=== PATIENT | female | born 1985 | race Caucasian/White ===

== ENCOUNTER 2025-01-12 00:50 | Emergency (ER) | payer OTHER ==
[~2025-01-12] VITALS: Ht 165.1 cm; Wt 56.0 kg
[~2025-01-12 00:50] MED LIST: ABIL5 PO; CYAN-35 MT; DIVA-73 PO; PANT40TA51 MT
[2025-01-12 00:52] VITALS: TEMP 98.6; O2SAT 99
[2025-01-12] MEDS: ACETAMINOPHEN 325MG TABLET PO ONE (01:52)
[2025-01-12] MEDS ORDERED: IBUP-1455 MT (01:54)
[2025-01-12] MEDS: IBUPROFEN 600MG TABLET PO ONE (02:08)
[2025-01-12 02:45] VITALS: BP 126/86; PULSE 100; RESP 13; O2SAT 100
== END 2025-01-12 02:47 | disposition home or self-care (01) ==
LOC: ER 01:28
DX: S00.83XA Contusion of other part of head, initial encounter (principal); F20.9 Schizophrenia, unspecified; H53.2 Diplopia; M47.812 Spondylosis without myelopathy or radiculopathy, cervical region; Z79.899 Other long term (current) drug therapy; Y08.89XA Assault by other specified means, initial encounter; Y93.89 Activity, other specified; Y92.89 Other specified places as the place of occurrence of the external cause; Y99.8 Other external cause status
CPT/HCPCS: 70486; 81025; 99284